=== PATIENT | male | born 1995 | race Caucasian/White ===

== ENCOUNTER 2020-11-13 13:04 | Emergency (ER) | payer BC ==
[~2020-11-13] VITALS: Ht 175.3 cm; Wt 81.7 kg
[~2020-11-13 13:04] MED LIST: ADVIL200 MG PO; AZITHROMYCIN500 MG PO; RANITIDINE HCL150 MG PO; ZOFRAN ODT8 MG PO
== END 2020-11-13 16:05 | disposition home or self-care (01) ==
LOC: ED 13:04
DX: J02.9 Acute pharyngitis, unspecified (principal); Z88.1 Allergy status to other antibiotic agents
CPT/HCPCS: 99283

== ENCOUNTER 2020-11-14 09:29 | Emergency (ER) | payer BC ==
[~2020-11-14] VITALS: Ht 175.3 cm; Wt 81.7 kg
--- OUTSIDE RECORDS SUMMARY | 2020-11-14 09:36 | XMS ---
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 Stanley has no Care Guidelines for this patient. Emely VISIT COUNT (12 MO.) 2 [facility] [facility]. TOTAL 2 NOTE: Visits indicate total known visits. ED/[facility] VISIT TRACKING (12 MO.) 11/14/2020 09:29 [facility] [place] TYPE: Emergency COMPLAINT: - SORE THROAT, HEADACHE 11/13/2020 13:05 [facility] [place] TYPE: Emergency COMPLAINT: - POSS POISONING INPATIENT VISIT TRACKING (12 MO.) No inpatient visits to display in this time frame [id number]
== END 2020-11-14 12:49 | disposition home or self-care (01) ==
LOC: ED 09:29
DX: U07.1 COVID-19 (principal); Z88.1 Allergy status to other antibiotic agents
CPT/HCPCS: 99283; C9803; U0003

== ENCOUNTER 2022-03-25 08:05 | Emergency (ER) | payer OTHER, BC ==
[~2022-03-25] VITALS: Ht 175.3 cm; Wt 81.7 kg
--- OUTSIDE RECORDS SUMMARY | 2022-03-25 08:13 | XMS ---
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 Stanley has no Care Guidelines for this patient. Emely VISIT COUNT (12 MO.) 1 SIMIN Gallardo TOTAL 1 NOTE: Visits indicate total known visits. ED/[facility] VISIT TRACKING (12 MO.) 03/25/2022 08:06 [facility] [place] TYPE: Emergency COMPLAINT: - CONTRAST REACTION INPATIENT VISIT TRACKING (12 MO.) No inpatient visits to display in this time frame [email or web address]
== END 2022-03-25 09:03 | disposition home or self-care (01) ==
LOC: ED 08:05
DX: L50.8 Other urticaria (principal); T50.8X5A Adverse effect of diagnostic agents, initial encounter; Z88.1 Allergy status to other antibiotic agents
CPT/HCPCS: 99283; J8540; Q0163